=== PATIENT | female | born 1980 | race Caucasian/White ===

== ENCOUNTER 2018-09-04 08:00 | Day surgery (SDC) | payer OTHER ==
[2018-09-04] MEDS ORDERED: Tylenol #3 PO (13:33)
[2018-09-04] MEDS ORDERED: MONODOX100 MG PO (13:33)
== END 2018-09-04 16:42 | disposition home or self-care (01) ==
LOC: CIR.AMB 08:00
DX: D25.0 Submucous leiomyoma of uterus (principal); N84.0 Polyp of corpus uteri